=== PATIENT | male | born 1960 | race Hispanic/Latino ===

== ENCOUNTER → 2018-11-08 | Outpatient (CLI) | payer MEDICAID ==
[~2018-11-08] MED LIST: AEC81 PO; AMIO200T5 PO; AMLO10TA7 PO; CARV6.2579 PO; EVOL420W SQ; INSU100I3 SQ; INSU100V12 SQ; LEVO300T4 PO; LIRA0.6P2 SQ; LOSA100T2 PO; OMEG1CAP31 PO; RIVA20TA PO; TYL3 PO
== END | disposition home or self-care (01) ==
LOC: SHCH 10:00
PROVIDERS: ATTEND Internal Medicine Cardiovascular Disease
DX: I11.9 Hypertensive heart disease without heart failure (principal); I08.0 Rheumatic disorders of both mitral and aortic valves
CPT/HCPCS: 93306

== ENCOUNTER → 2020-01-25 | Outpatient (CLI) | payer MEDICAID ==
[~2020-01-25] MED LIST changes: -AMIO200T5 PO; -AMLO10TA7 PO; +CARV12.580 PO; +CARV25TA PO; -CARV6.2579 PO; -EVOL420W SQ; +FOLI0.8T22 PO; +FURO80TA3 PO; +HYDR25 PO; -INSU100V12 SQ; +LEVO150 PO; +LINA5TAB PO; -LOSA100T2 PO; +LOSA50TA64 PO; +PRAV20TA4 PO; +RIVA15TA PO; -RIVA20TA PO; +SODI650T PO; -TYL3 PO
== END | disposition home or self-care (01) ==
LOC: SHCH 07:49
PROVIDERS: ATTEND Internal Medicine Cardiovascular Disease
DX: I25.10 Atherosclerotic heart disease of native coronary artery without angina pectoris (principal); R09.89 Other specified symptoms and signs involving the circulatory and respiratory systems; R60.9 Edema, unspecified
CPT/HCPCS: 93306; 93880; 93970

== ENCOUNTER 2020-07-07 11:33 | Observation (INO) | payer MEDICARE ==
[~2020-07-07] VITALS: Ht 177.8 cm; Wt 122.7 kg
[~2020-07-07 11:33] MED LIST changes: -CARV12.580 PO; +EVOL140S2 SQ; -FURO80TA3 PO; -HYDR25 PO; +INSU3INS3 SQ; -LEVO300T4 PO; -LIRA0.6P2 SQ; -SODI650T PO
[2020-07-07] MEDS ORDERED: METHYLPREDNISOLONE SOD SUCC 125MG/2ML VIAL ONE (11:45)
[2020-07-07] MEDS ORDERED: DiphenhydrAMINE HCL 50 MG/ML VIAL ONE (11:45)
[2020-07-07] MEDS ORDERED: FAMOTIDINE/PF 20 MG/2 ML VIAL IV ONE ×2 (11:45→21:16)
[2020-07-07 11:50] LABS: BASOPHILS % (AUTO) 0.2 % (0.0-5.0); EOSINOPHILS % (AUTO) 2.6 % (0.0-8.0); HEMATOCRIT 39.1 % (42-54); LYMPHOCYTES % (AUTO) 17.7 % (21.0-51.0); MEAN CORPUSCULAR HEMOGLOBIN 30.3 pg (27.0-33.0); MEAN CORPUSCULAR HGB CONC 32.2 g/dL (32.0-36.0); MONOCYTES % (AUTO) 3.2 % (3.0-13.0); NEUTROPHILS % (AUTO) 75.8 % (40.0-77.0); PLATELET COUNT (AUTO) 101 K/uL (130-400); RED BLOOD CELL COUNT(AUTO) 4.16 MIL/uL (4.50-6.20); RED CELL DISTRIBUTION WIDTH 15.4 % (11.0-15.5); WHITE BLOOD COUNT (AUTO) 8.5 K/uL (4.8-10.8)
[2020-07-07 12:00] LABS: ALBUMIN 2.5 g/dL (3.5-5.0); BILIRUBIN,TOTAL 0.9 mg/dL (0.2-1.0); CREATININE 7.1 mg/dL (0.5-1.5); POTASSIUM 4.1 mmol/L (3.5-5.1); TOTAL PROTEIN, SERUM 5.7 g/dL (6.0-8.3)
[2020-07-07] MEDS ORDERED: MORPHINE SULFATE 2 MG/ML 1ML SYG IV PRN (17:15)
[2020-07-07] MEDS ORDERED: ACETAMINOPHEN 325 MG TAB PO PRN ×2 (17:15)
[2020-07-07] MEDS ORDERED: DiphenhydrAMINE HCL 50 MG/ML VIAL IV PRN (17:15)
[2020-07-07] MEDS ORDERED: SODIUM CHLORIDE 0.9% 1000ML 1,000 ML IV SCH (17:15)
[2020-07-07] MEDS ORDERED: ONDANSETRON HCL 4 MG/2 ML VIAL IV PRN (17:15)
[2020-07-07 18:21] LABS: HEMOGLOBIN A1C 9.4 % (4.0-6.0)
[2020-07-07 19:46] LABS: THYROID STIMULATING HORMONE 4.57 uIU/mL (0.36-3.74)
[2020-07-07] MEDS ORDERED: INSULIN GLARGINE 100 UNITS/ML 10 ML VIAL SQ SCH (21:00)
[2020-07-07 22:11] LABS: TROPONIN I 1.25 ng/mL (0.00-0.06)
[2020-07-07] MEDS ORDERED: ASPIRIN 325 MG TABLET ONE (22:49)
[2020-07-07] MEDS ORDERED: CETIRIZINE HCL 5 MG TABLET PO ONE (22:49)
[2020-07-07] MEDS ORDERED: METOPROLOL TARTRATE 25 MG TAB ONE (22:50)
[2020-07-07] MEDS ORDERED: HEPARIN SODIUM 5000UNIT/ML 1ML VIAL ONE (22:50)
[2020-07-07] MEDS ORDERED: INSULIN HUMULIN R 100 UNIT/ML 3ML ONE (23:05)
[2020-07-08 00:04] LABS: AMPHET/METH SCREEN,URINE NEGATIVE (NEGATIVE); BARBITURATE SCREEN, URINE NEGATIVE (NEGATIVE); BENZODIAZEPINES SCREEN,URINE NEGATIVE (NEGATIVE); CANNABINOID SCREEN,URINE NEGATIVE (NEGATIVE); COCAINE SCREEN,URINE NEGATIVE (NEGATIVE); OPIATE SCREEN,URINE NEGATIVE (NEGATIVE); PHENCYCLIDINE SCREEN,URINE NEGATIVE (NEGATIVE)
[2020-07-08] MEDS ORDERED: EPIN0.3P3 IJ (04:03)
[2020-07-08 05:15] LABS: BASOPHILS % (AUTO) 0.2 % (0.0-5.0); HEMATOCRIT 34.2 % (42-54); LYMPHOCYTES % (AUTO) 5.2 % (21.0-51.0); MEAN CORPUSCULAR HEMOGLOBIN 31.3 pg (27.0-33.0); MEAN CORPUSCULAR HGB CONC 33.6 g/dL (32.0-36.0); MEAN CORPUSCULAR VOLUME 93.2 fL (79-99); MONOCYTES % (AUTO) 4.2 % (3.0-13.0); PLATELET COUNT (AUTO) 103 K/uL (130-400); RED BLOOD CELL COUNT(AUTO) 3.67 MIL/uL (4.50-6.20); RED CELL DISTRIBUTION WIDTH 15.2 % (11.0-15.5); WHITE BLOOD COUNT (AUTO) 9.3 K/uL (4.8-10.8)
[2020-07-08 06:55] LABS: ALBUMIN 3.2 g/dL (3.5-5.0); BILIRUBIN,TOTAL 0.8 mg/dL (0.2-1.0); CREATININE 7.6 mg/dL (0.5-1.5); POTASSIUM 5.6 mmol/L (3.5-5.1); TOTAL PROTEIN, SERUM 7.1 g/dL (6.0-8.3)
[2020-07-08] MEDS: SODIUM POLYSTYRENE SULFONATE 15 GM/60 ML ML PO SCH (08:15)
[2020-07-08] MEDS ORDERED: CALCIUM GLUCONATE 1 GM/10 ML VIAL IV SCH (08:15)
[2020-07-08] MEDS ORDERED: CALCIUM GLUCONATE 1 GM in SODIUM CHLORIDE 0.9% 100 ML IV SCH (08:30)
[2020-07-08] MEDS ORDERED: SODIUM POLYSTYRENE SULFONATE 15 GM/60 ML ML ONE ×2 (08:32→08:44)
[2020-07-08] MEDS ORDERED: CALCIUM GLUCONATE 1 GM/10 ML VIAL IV ONE (08:33)
[2020-07-08] MEDS ORDERED: METOPROLOL TARTRATE 25 MG TAB ONE (08:33)
[2020-07-08] MEDS ORDERED: METHYLPREDNISOLONE SOD SUCC 125MG/2ML VIAL ONE (08:33)
[2020-07-08] MEDS ORDERED: CETIRIZINE HCL 5 MG TABLET PO ONE (08:33)
[2020-07-08] MEDS ORDERED: FAMOTIDINE/PF 20 MG/2 ML VIAL IV ONE (08:34)
[2020-07-08] MEDS ORDERED: INSULIN HUMULIN R 100 UNIT/ML 3ML ONE ×3 (08:35→17:27)
[2020-07-08] MEDS ORDERED: SODIUM CHLORIDE 0.9% 50 ML IV ONE (08:36)
[2020-07-08] MEDS: FAMOTIDINE/PF 20 MG/2 ML VIAL IV SCH (09:00)
[2020-07-08] MEDS: CETIRIZINE HCL 5 MG TABLET PO SCH (09:00)
[2020-07-08] MEDS: ASPIRIN 325MG EC TAB 325 MG TABLET.DR PO SCH (09:00)
[2020-07-08] MEDS: METHYLPREDNISOLONE SOD SUCC 125MG/2ML VIAL IVP SCH (09:00)
[2020-07-08] MEDS ORDERED: HEPARIN SODIUM 5000UNIT/ML 1ML VIAL ONE (10:10)
[2020-07-08] MEDS ORDERED: ASPIRIN 325 MG TABLET ONE (10:10)
[2020-07-08] MEDS: INSULIN LISPRO 100 UNIT/ML 3ML SQ SCH (17:00)
[2020-07-08 18:15] VITALS: BP 167/90
[2020-07-08 19:43] VITALS: BP 178/87
[2020-07-08] MEDS: METOPROLOL TARTRATE 25 MG TAB PO SCH (21:12)
[2020-07-08] MEDS: HEPARIN SODIUM 5000UNIT/ML 1ML VIAL SQ SCH (21:14)
[2020-07-08] MEDS: INSULIN HUMULIN R 100 UNIT/ML 3ML SQ SCH (21:15)
[2020-07-08 23:11] VITALS: BP 151/83
[2020-07-09 03:00] VITALS: BP 155/76
[2020-07-09 05:03] LABS: HEMATOCRIT 30.2 % (42-54); MEAN CORPUSCULAR HEMOGLOBIN 30.7 pg (27.0-33.0); MEAN CORPUSCULAR HGB CONC 33.1 g/dL (32.0-36.0); MEAN CORPUSCULAR VOLUME 92.6 fL (79-99); RED BLOOD CELL COUNT(AUTO) 3.26 MIL/uL (4.50-6.20); RED CELL DISTRIBUTION WIDTH 15.1 % (11.0-15.5); WHITE BLOOD COUNT (AUTO) 9.7 K/uL (4.8-10.8)
[2020-07-09 05:31] LABS: MAGNESIUM 2.6 mg/dL (1.80-2.40); PHOSPHORUS 8.5 mg/dL (2.5-4.9); POTASSIUM 4.4 mmol/L (3.5-5.1)
[2020-07-09 05:59] LABS: CREATININE 7.9 mg/dL (0.5-1.5)
[2020-07-09] MEDS: INSULIN HUMULIN R 100 UNIT/ML 3ML SQ SCH ×3 (06:32→13:26)
[2020-07-09 07:15] LABS: HEPATITIS A ANTIBODY IGM Negative (Negative); HEPATITIS B CORE IGM Negative (Negative); HEPATITIS Bs ANTIGEN SCREEN P Negative (Negative)
[2020-07-09 08:24] VITALS: BP 167/83
[2020-07-09] MEDS: CETIRIZINE HCL 5 MG TABLET PO SCH (09:43)
[2020-07-09] MEDS: SODIUM POLYSTYRENE SULFONATE 15 GM/60 ML ML PO SCH (09:43)
[2020-07-09] MEDS: METOPROLOL TARTRATE 25 MG TAB PO SCH (09:44)
[2020-07-09] MEDS: ASPIRIN 325MG EC TAB 325 MG TABLET.DR PO SCH (09:44)
[2020-07-09] MEDS: FAMOTIDINE/PF 20 MG/2 ML VIAL IV SCH (09:47)
[2020-07-09] MEDS: METHYLPREDNISOLONE SOD SUCC 125MG/2ML VIAL IVP SCH (09:47)
[2020-07-09] MEDS: INSULIN LISPRO 100 UNIT/ML 3ML SQ SCH ×2 (10:01→13:24)
[2020-07-09] MEDS: HEPARIN SODIUM 5000UNIT/ML 1ML VIAL SQ SCH (10:03)
[2020-07-09 12:19] VITALS: BP 171/89
== END 2020-07-09 16:00 | disposition home or self-care (01) ==
LOC: EDH 11:33 → INTOOBSV 17:03 → EDHIP 17:03 → 3BH 07-08 17:09
PROVIDERS: ADMIT Family Medicine; ATTEND Family Medicine
DX: T78.2XXA Anaphylactic shock, unspecified, initial encounter (principal); T63.441A Toxic effect of venom of bees, accidental (unintentional), initial encounter; I12.0 Hypertensive chronic kidney disease with stage 5 chronic kidney disease or end stage renal disease; E11.22 Type 2 diabetes mellitus with diabetic chronic kidney disease; N18.6 End stage renal disease; E11.65 Type 2 diabetes mellitus with hyperglycemia; E44.0 Moderate protein-calorie malnutrition; N17.9 Acute kidney failure, unspecified; E78.5 Hyperlipidemia, unspecified; E03.9 Hypothyroidism, unspecified; I25.10 Atherosclerotic heart disease of native coronary artery without angina pectoris; M10.9 Gout, unspecified; E66.9 Obesity, unspecified; I25.5 Ischemic cardiomyopathy; R79.89 Other specified abnormal findings of blood chemistry; D64.9 Anemia, unspecified; E87.5 Hyperkalemia; E11.51 Type 2 diabetes mellitus with diabetic peripheral angiopathy without gangrene; Z95.810 Presence of automatic (implantable) cardiac defibrillator; Z95.1 Presence of aortocoronary bypass graft; Z99.2 Dependence on renal dialysis; Z79.82 Long term (current) use of aspirin; Z79.899 Other long term (current) drug therapy; Z79.4 Long term (current) use of insulin; Z88.8 Allergy status to other drugs, medicaments and biological substances; Z91.030 Bee allergy status; Z68.38 Body mass index [BMI] 38.0-38.9, adult
CPT/HCPCS: 36415 ×3; 80048; 80053 ×2; 80061; 80074; 80305; 82550 ×2; 82948 ×8; 83010; 83036; 83615; 83735; 83874; 84100; 84145; 84443; 84484 ×5; 85025 ×2; 85027; 85651; 87040 ×2; 93005 ×2; 96372 ×2; 96374; 96375; 99284; G0378 ×44; J0610 ×2; J1200; J1644 ×4; J1815 ×6; J2930 ×3; J3490 ×4; 90935

== ENCOUNTER → 2021-08-11 | Outpatient (CLI) | payer OTHER, MEDICARE ==
[~2021-08-11] MED LIST changes: +EPIN0.3P3 IJ; -EVOL140S2 SQ; -OMEG1CAP31 PO
== END | disposition home or self-care (01) ==
LOC: SHCH 14:41
PROVIDERS: ATTEND Internal Medicine Cardiovascular Disease
DX: I35.8 Other nonrheumatic aortic valve disorders (principal); I25.10 Atherosclerotic heart disease of native coronary artery without angina pectoris; I13.10 Hypertensive heart and chronic kidney disease without heart failure, with stage 1 through stage 4 chronic kidney disease, or unspecified chronic kidney disease; E11.22 Type 2 diabetes mellitus with diabetic chronic kidney disease; N18.9 Chronic kidney disease, unspecified; I73.9 Peripheral vascular disease, unspecified; E78.5 Hyperlipidemia, unspecified; E66.9 Obesity, unspecified; Z95.1 Presence of aortocoronary bypass graft
CPT/HCPCS: 93306

== ENCOUNTER → 2021-10-31 | Outpatient (CLI) | payer OTHER, MEDICARE ==
[~2021-10-31] VITALS: Ht 180.3 cm; Wt 127.5 kg
[~2021-10-31] MED LIST changes: +REGADENOSON 0.4 MG/5 ML PF SYG IVP SCH
== END | disposition home or self-care (01) ==
LOC: SHCH 09:20
PROVIDERS: ATTEND Internal Medicine Cardiovascular Disease
DX: I11.9 Hypertensive heart disease without heart failure (principal); R06.02 Shortness of breath; E78.5 Hyperlipidemia, unspecified; E11.9 Type 2 diabetes mellitus without complications; Z95.0 Presence of cardiac pacemaker; Z95.1 Presence of aortocoronary bypass graft
CPT/HCPCS: 78452; 93017; 96374; A9500 ×2; J2785

== ENCOUNTER 2021-12-26 19:51 | Emergency (ER) | payer OTHER, MEDICARE ==
[~2021-12-26] VITALS: Ht 177.8 cm; Wt 117.9 kg
[~2021-12-26 19:51] MED LIST changes: -REGADENOSON 0.4 MG/5 ML PF SYG IVP SCH
[2021-12-26 20:28] LABS: BASOPHILS % (AUTO) 0.3 % (0.0-5.0); EOSINOPHILS % (AUTO) 1.6 % (0.0-8.0); HEMATOCRIT 40.5 % (42-54); LYMPHOCYTES % (AUTO) 9.4 % (21.0-51.0); MEAN CORPUSCULAR HEMOGLOBIN 30.7 pg (27.0-33.0); MEAN CORPUSCULAR HGB CONC 31.1 g/dL (32.0-36.0); MEAN CORPUSCULAR VOLUME 98.8 fL (79-99); MONOCYTES % (AUTO) 5.5 % (3.0-13.0); NEUTROPHILS % (AUTO) 82.8 % (40.0-77.0); PLATELET COUNT (AUTO) 111 K/uL (130-400); RED CELL DISTRIBUTION WIDTH 16.3 % (11.0-15.5); WHITE BLOOD COUNT (AUTO) 7.3 K/uL (4.8-10.8)
[2021-12-26] MEDS: DiphenhydrAMINE HCL 50 MG/ML VIAL IV ONE (20:30)
[2021-12-26] MEDS: EPINEPHRINE PF 1MG (1:1,000) 1 MG/ML AMP SQ ONE (20:30)
[2021-12-26] MEDS: SOLU-MEDROL 125MG VIAL IVP ONE (20:30)
[2021-12-26] MEDS: FAMOTIDINE 20MG VIAL IV ONE (20:30)
[2021-12-26 20:46] LABS: CREATININE 5.3 mg/dL (0.5-1.5); POTASSIUM 4.1 mmol/L (3.5-5.1)
[2021-12-26 20:50] LABS: ALBUMIN 3.6 g/dL (3.5-5.0); TOTAL PROTEIN, SERUM 7.1 g/dL (6.0-8.3)
[2021-12-26] MEDS ORDERED: EPIN0.3P19 IJ (21:47)
[2021-12-26 21:53] VITALS: BP 159/73
== END 2021-12-26 22:07 | disposition home or self-care (01) ==
LOC: EDH 19:51
DX: T63.441A Toxic effect of venom of bees, accidental (unintentional), initial encounter (principal); I12.0 Hypertensive chronic kidney disease with stage 5 chronic kidney disease or end stage renal disease; E11.22 Type 2 diabetes mellitus with diabetic chronic kidney disease; N18.6 End stage renal disease; E78.00 Pure hypercholesterolemia, unspecified; Z91.030 Bee allergy status; Z79.52 Long term (current) use of systemic steroids; Z79.82 Long term (current) use of aspirin; Z79.84 Long term (current) use of oral hypoglycemic drugs; Z79.899 Other long term (current) drug therapy; Z95.1 Presence of aortocoronary bypass graft; Z95.810 Presence of automatic (implantable) cardiac defibrillator; Y92.89 Other specified places as the place of occurrence of the external cause
CPT/HCPCS: 99283; 96374; 96375; 80053; 85025; 36415; 96372; J1200; J3490; J2930; J0171

== ENCOUNTER 2022-10-30 20:12 | Emergency (ER) | payer OTHER, MEDICARE ==
[~2022-10-30] VITALS: Ht 175.3 cm; Wt 123.8 kg
[~2022-10-30 20:12] MED LIST changes: +EPIN0.3P19 IJ
[2022-10-30 20:46] LABS: MEAN CORPUSCULAR HEMOGLOBIN 34.2 pg (27.0-33.0); MEAN CORPUSCULAR HGB CONC 32.2 g/dL (32.0-36.0); MEAN CORPUSCULAR VOLUME 106.1 fL (79-99); PLATELET COUNT (AUTO) 100 K/uL (130-400); RED BLOOD CELL COUNT(AUTO) 1.96 MIL/uL (4.50-6.20); RED CELL DISTRIBUTION WIDTH 16.9 % (11.0-15.5); WHITE BLOOD COUNT (AUTO) 5.3 K/uL (4.8-10.8)
[2022-10-30 20:54] LABS: CREATININE 6.9 mg/dL (0.5-1.5); POTASSIUM 3.6 mmol/L (3.5-5.1)
[2022-10-30 20:57] LABS: INR 1.08 (0.85-1.15); PROTHROMBIN TIME 11.7 SEC (9.6-11.6)
[2022-10-30 20:58] LABS: PARTIAL THROMBOPLASTIN TIME 25.6 SEC (26.3-35.5)
[2022-10-30 21:04] LABS: ALBUMIN 3.3 g/dL (3.5-5.0); TOTAL PROTEIN, SERUM 6.5 g/dL (6.0-8.3)
[2022-10-30 21:15] LABS: HEMATOCRIT 20.8 % (42-54)
[2022-10-31 00:30] VITALS: BP 134/65
== END 2022-10-31 01:10 | disposition left against medical advice (07) ==
LOC: EDH 20:12
DX: I21.4 Non-ST elevation (NSTEMI) myocardial infarction (principal); I12.0 Hypertensive chronic kidney disease with stage 5 chronic kidney disease or end stage renal disease; E11.22 Type 2 diabetes mellitus with diabetic chronic kidney disease; N18.6 End stage renal disease; D63.1 Anemia in chronic kidney disease; E78.00 Pure hypercholesterolemia, unspecified; Z99.2 Dependence on renal dialysis; Z79.01 Long term (current) use of anticoagulants; Z79.84 Long term (current) use of oral hypoglycemic drugs; Z79.82 Long term (current) use of aspirin; Z79.899 Other long term (current) drug therapy; Z91.030 Bee allergy status; Z95.1 Presence of aortocoronary bypass graft; Z95.810 Presence of automatic (implantable) cardiac defibrillator
CPT/HCPCS: 99291; 36430; 84484; 80053; 85027; 85610; 85730; 86850; 86900; 86901; 86923; 36415; 93005; P9016

== ENCOUNTER 2022-12-16 10:07 | Emergency (ER) | payer OTHER, MEDICARE ==
[~2022-12-16] VITALS: Ht 170.2 cm; Wt 124.3 kg
[~2022-12-16 10:07] MED LIST changes: -EPIN0.3P19 IJ; -EPIN0.3P3 IJ; -INSU100I3 SQ; +INSU300I SQ; -INSU3INS3 SQ; +LEVO25TA9 PO; -LINA5TAB PO; +NOVOLOG FLEXPEN; +PANT40TA PO; +REPATHA INJECTION; +SEVE0.8P3 PO; +SEVE800 PO; +SUCR500T PO; +VICTOZA INJECTION
[2022-12-16 10:09] VITALS: BP 141/67; PULSE 4; RESP 18
[2022-12-16 11:53] LABS: BASOPHILS # (AUTO) 0.07 K/uL (0.00-0.20); BASOPHILS % (AUTO) 1.2 % (0.0-5.0); EOSINOPHILS # (AUTO) 0.28 K/uL (0.00-0.70); EOSINOPHILS % (AUTO) 4.8 % (0.0-8.0); HEMATOCRIT 23.9 % (42-54); IMMATURE GRANULOCYTE ABSOLUTE 0.01 K/uL (0-1); LYMPHOCYTES # (AUTO) 0.8 K/uL (1.0-4.8); MEAN CORPUSCULAR HEMOGLOBIN 31.8 pg (27.0-33.0); MEAN CORPUSCULAR HGB CONC 31.8 g/dL (32.0-36.0); MONOCYTES # (AUTO) 0.5 K/uL (0.1-1.0); MONOCYTES % (AUTO) 8.6 % (3.0-13.0); NEUTROPHILS # (AUTO) 4.2 K/uL (1.8-7.7); NEUTROPHILS % (AUTO) 72.2 % (40.0-77.0); PLATELET COUNT (AUTO) 152 K/uL (130-400); RED BLOOD CELL COUNT(AUTO) 2.39 MIL/uL (4.50-6.20); RED CELL DISTRIBUTION WIDTH 16.8 % (11.0-15.5); WHITE BLOOD COUNT (AUTO) 5.8 K/uL (4.8-10.8)
[2022-12-16 12:04] LABS: CREATININE 6.1 mg/dL (0.5-1.5); POTASSIUM 4.1 mmol/L (3.5-5.1)
[2022-12-16 12:08] LABS: ALBUMIN 3.2 g/dL (3.5-5.0); BILIRUBIN,TOTAL 1.5 mg/dL (0.2-1.0); TOTAL PROTEIN, SERUM 6.4 g/dL (6.0-8.3)
== END 2022-12-16 14:06 | disposition home or self-care (01) ==
LOC: EDH 10:07
DX: D64.9 Anemia, unspecified (principal); I12.0 Hypertensive chronic kidney disease with stage 5 chronic kidney disease or end stage renal disease; E11.22 Type 2 diabetes mellitus with diabetic chronic kidney disease; N18.6 End stage renal disease; Z99.2 Dependence on renal dialysis; E78.00 Pure hypercholesterolemia, unspecified; Z79.4 Long term (current) use of insulin; Z79.82 Long term (current) use of aspirin; Z79.85 Long-term (current) use of injectable non-insulin antidiabetic drugs; Z79.890 Hormone replacement therapy; Z79.899 Other long term (current) drug therapy; Z90.49 Acquired absence of other specified parts of digestive tract; Z91.030 Bee allergy status; Z95.810 Presence of automatic (implantable) cardiac defibrillator
CPT/HCPCS: 36415; 71045; 80053; 84484; 85025; 86850; 86900; 86901; 93005

== ENCOUNTER 2023-05-21 07:12 | Day surgery (SDC) | payer MEDICARE, OTHER ==
[2023-05-19 12:18] LABS: BASOPHILS # (AUTO) 0.05 K/uL (0.00-0.20); EOSINOPHILS # (AUTO) 0.31 K/uL (0.00-0.70); IMMATURE GRANULOCYTE ABSOLUTE 0.02 K/uL (0-1); LYMPHOCYTES # (AUTO) 0.7 K/uL (1.0-4.8); LYMPHOCYTES % (AUTO) 13.9 % (21.0-51.0); MEAN CORPUSCULAR HEMOGLOBIN 33.7 pg (27.0-33.0); MEAN CORPUSCULAR HGB CONC 32.7 g/dL (32.0-36.0); MEAN CORPUSCULAR VOLUME 103.1 fL (79-99); MONOCYTES # (AUTO) 0.5 K/uL (0.1-1.0); NEUTROPHILS # (AUTO) 3.6 K/uL (1.8-7.7); NEUTROPHILS % (AUTO) 68.7 % (40.0-77.0); PLATELET COUNT (AUTO) 73 K/uL (130-400); RED BLOOD CELL COUNT(AUTO) 3.59 MIL/uL (4.50-6.20); RED CELL DISTRIBUTION WIDTH 16.5 % (11.0-15.5); WHITE BLOOD COUNT (AUTO) 5.2 K/uL (4.8-10.8)
[2023-05-19 12:27] LABS: INR 1.04 (0.85-1.15)
[2023-05-19 12:28] LABS: PARTIAL THROMBOPLASTIN TIME 26.9 SEC (26.3-35.5)
[2023-05-19 12:30] LABS: POTASSIUM 4.6 mmol/L (3.5-5.1)
[2023-05-19 12:43] VITALS: BP 137/62; PULSE 60; RESP 18
[2023-05-19 12:58] LABS: B-TYPE NATRIURETIC PEPTIDE 2100 pg/mL (0-100)
[2023-05-21] VITALS (11 sets, daily range): BP systolic 126–147; BP diastolic 67–84; PULSE 54–66; RESP 13–18
[~2023-05-21] VITALS: Ht 177.8 cm; Wt 127.6 kg
[~2023-05-21 07:12] MED LIST changes: +EVOL140S2 SQ; +INSU100I3 SQ; +LIRA0.6P SQ; -NOVOLOG FLEXPEN; -PANT40TA PO; -REPATHA INJECTION; -RIVA15TA PO; -SEVE0.8P3 PO; -VICTOZA INJECTION
[2023-05-21] MEDS ORDERED: 0.9%NACL 1000ML 1,000 ML IV ONE (07:45)
[2023-05-21] MEDS ORDERED: LIDOCAINE HCL 400MG/20ML VIAL ONE (09:39)
[2023-05-21] MEDS ORDERED: SODIUM BICARB 50MEQ 50ML VIAL 50 ML ONE (09:39)
[2023-05-21] MEDS ORDERED: NITROGLYCERIN 50MG VIAL ONE (09:40)
[2023-05-21] MEDS ORDERED: MEPERIDINE-PF 25 MG/ML SYG ONE ×3 (09:40→11:01)
[2023-05-21] MEDS ORDERED: IOHEXOL 350 MG/ML 100ML INFUS..BTL IV ONE (09:40)
[2023-05-21] MEDS ORDERED: MIDAZOLAM HCL 1 MG/ML 2ML VIAL ONE ×3 (09:40→11:01)
[2023-05-21] MEDS ORDERED: HEPARIN 10,000 UNIT/10ML (1,000 UNIT/ML) VIAL ONE (09:40)
[2023-05-21] MEDS ORDERED: IOHEXOL-350 50ML VIAL IV ONE (10:12)
[2023-05-21] MEDS ORDERED: IOHEXOL-350 75 ML VIAL IV ONE (11:13)
[2023-05-21] MEDS ORDERED: CLOPIDOGREL 300MG TAB ONE (11:43)
[2023-05-21] MEDS ORDERED: ASPIRIN 325MG EC TAB PO ONE (11:43)
[2023-05-21] MEDS ORDERED: DEXTROSE 50%-WATER 50 ML DISP.SYRIN IV PRN (12:00)
[2023-05-21] MEDS ORDERED: GLUCAGON 1MG KIT 1 MG ML IM PRN (12:00)
[2023-05-21] MEDS ORDERED: INSULIN HUMULIN R 100 UNIT/ML 3ML SQ SCH (16:30)
== END 2023-05-21 18:15 | disposition home or self-care (01) ==
LOC: DAH 07:12
PROVIDERS: ATTEND Internal Medicine Cardiovascular Disease
DX: I25.119 Atherosclerotic heart disease of native coronary artery with unspecified angina pectoris (principal); I25.729 Atherosclerosis of autologous artery coronary artery bypass graft(s) with unspecified angina pectoris; I25.82 Chronic total occlusion of coronary artery; I25.5 Ischemic cardiomyopathy; I44.7 Left bundle-branch block, unspecified; E11.22 Type 2 diabetes mellitus with diabetic chronic kidney disease; I13.2 Hypertensive heart and chronic kidney disease with heart failure and with stage 5 chronic kidney disease, or end stage renal disease; N18.6 End stage renal disease; I50.42 Chronic combined systolic (congestive) and diastolic (congestive) heart failure; E11.51 Type 2 diabetes mellitus with diabetic peripheral angiopathy without gangrene; E78.5 Hyperlipidemia, unspecified; E03.9 Hypothyroidism, unspecified; K21.9 Gastro-esophageal reflux disease without esophagitis; Z79.82 Long term (current) use of aspirin; Z79.01 Long term (current) use of anticoagulants; Z79.899 Other long term (current) drug therapy; Z79.890 Hormone replacement therapy; Z83.3 Family history of diabetes mellitus; Z82.3 Family history of stroke; Z99.2 Dependence on renal dialysis; Z95.1 Presence of aortocoronary bypass graft
CPT/HCPCS: 80048; 83880; 85025; 85610; 85730; 36415; 71045; 93005 ×2; 85347 ×2; 82948 ×2; 93459; C9600 ×2; C1887 ×3; C1769 ×3; C1894 ×2; C1874 ×4; C1760; C1725; J3490 ×3; J7030; J1644 ×2; J2250 ×3; J2175 ×3; Q9967 ×3; A4215; A4222; A4221; A4663; A4216; A4606; C9601 ×2; Q9965 ×2; A4223 ×3; 99156; 99157

== ENCOUNTER → 2023-06-14 | Outpatient (CLI) | payer OTHER ==
[2023-06-14 16:32] LABS: BASOPHILS # (AUTO) 0.07 K/uL (0.00-0.20); BASOPHILS % (AUTO) 1.2 % (0.0-5.0); EOSINOPHILS # (AUTO) 0.36 K/uL (0.00-0.70); EOSINOPHILS % (AUTO) 6.3 % (0.0-8.0); HEMATOCRIT 26.5 % (42-54); IMMATURE GRANULOCYTE ABSOLUTE 0.02 K/uL (0-1); LYMPHOCYTES # (AUTO) 0.8 K/uL (1.0-4.8); LYMPHOCYTES % (AUTO) 13.9 % (21.0-51.0); MEAN CORPUSCULAR HEMOGLOBIN 33.9 pg (27.0-33.0); MEAN CORPUSCULAR HGB CONC 30.6 g/dL (32.0-36.0); MEAN CORPUSCULAR VOLUME 110.9 fL (79-99); MONOCYTES # (AUTO) 0.5 K/uL (0.1-1.0); MONOCYTES % (AUTO) 8.7 % (3.0-13.0); NEUTROPHILS % (AUTO) 69.6 % (40.0-77.0); NUCLEATED RED BLOOD CELLS 0.3 % (0.0-0.19); PLATELET COUNT (AUTO) 93 K/uL (130-400); RED BLOOD CELL COUNT(AUTO) 2.39 MIL/uL (4.50-6.20); RED CELL DISTRIBUTION WIDTH 17.7 % (11.0-15.5); WHITE BLOOD COUNT (AUTO) 5.7 K/uL (4.8-10.8)
[2023-06-14 16:56] LABS: ALBUMIN 2.9 g/dL (3.5-5.0); BILIRUBIN,TOTAL 1.5 mg/dL (0.2-1.0); POTASSIUM 4.9 mmol/L (3.5-5.1); TOTAL PROTEIN, SERUM 6.4 g/dL (6.0-8.3)
== END | disposition home or self-care (01) ==
LOC: LAB 12:42
PROVIDERS: ATTEND Physician Assistant
DX: I10 Essential (primary) hypertension (principal); E78.5 Hyperlipidemia, unspecified
CPT/HCPCS: 36415; 80053; 83880; 85025

== ENCOUNTER → 2023-12-29 | Outpatient (CLI) | payer OTHER ==
[~2023-12-29] MED LIST changes: +ALBUMIN (HUMAN) 25% 200 ML IV ONE
[2023-12-29 08:53] LABS: INR 1.1 (0.85-1.15); PROTHROMBIN TIME 11.8 SEC (9.6-11.6)
[2023-12-29 08:54] LABS: PARTIAL THROMBOPLASTIN TIME 27.2 SEC (26.3-35.5)
[2023-12-29 15:42] LABS: SPECIMENTYPE,BODY FLUID ASCITES
[2023-12-29 15:43] LABS: APPEARANCE BODY FLUID CLEAR (CLEAR); COLOR,BODY FLUID YELLOW (LT YELLOW); TOTAL VOLUME,BODY FLUID 750 mL
[2023-12-29 15:49] LABS: BODY FLUID RBC 68 /cu. mm.; BODY FLUID WBC 328 /cu. mm.
[2023-12-29 17:35] LABS: BF LYMPHOCYTE 30 %; BF MACROPHAGE 57; BF OTHER CELLS 1; BF TOTAL CELLS COUNTED 100
== END | disposition home or self-care (01) ==
LOC: RAH 07:46
PROVIDERS: ATTEND Internal Medicine
DX: K70.31 Alcoholic cirrhosis of liver with ascites (principal); I12.0 Hypertensive chronic kidney disease with stage 5 chronic kidney disease or end stage renal disease; E11.22 Type 2 diabetes mellitus with diabetic chronic kidney disease; N18.6 End stage renal disease; E78.5 Hyperlipidemia, unspecified; E03.9 Hypothyroidism, unspecified; M10.9 Gout, unspecified; Z95.0 Presence of cardiac pacemaker; Z79.82 Long term (current) use of aspirin; Z79.899 Other long term (current) drug therapy
CPT/HCPCS: 49083; 89051; 85610; 85730; 87071; 87205; 36415; P9046; C1729; 96365

== ENCOUNTER 2024-05-20 14:34 | Emergency (ER) | payer OTHER, MEDICARE ==
[~2024-05-20] VITALS: Ht 175.3 cm; Wt 122.5 kg
[~2024-05-20 14:34] MED LIST changes: -ALBUMIN (HUMAN) 25% 200 ML IV ONE
--- NOTE | 2024-05-20 14:41 | ERN ---
ED Note History of Present Illness Stated Complaint: FLU LIKE SYMPTOMS Chief Complaint: Flu Symptoms Time Seen by MD: 14:35 Dictation: PATIENT IS A 64-YEAR-OLD MALE BEING SEEN HERE WITH HIS WITH THE SAME COMPLAINTS OF HAVING FLU-LIKE SYMPTOMS TO INCLUDE CLEAR RHINITIS, MILD SORE THROAT DRY COUGH AND BODY ACHES FOR TWO DAYS. NO NAUSEA VOMITING NO DIARRHEA THEY DID NOT GO SEE THEIR PRIMARY CARE DOCTOR. AND IF TAKEN NOTHING PRIOR TO ARRIVAL FOR PAIN. Allergies: Coded Allergies: pioglitazone (Unverified Allergy, Unknown, 09/11/16) Uncoded Allergies: Bees (Adverse Reaction, Severe, 07/07/20) Home Meds Active Scripts Benzonatate (Tessalon Perles) 100 Mg Cap, 1 CAP PO TID for cough for 10 Days, #30 CAP 0 Refills Prov:JONATHAN ROBLEDO SEXUAL ABUSE COUNSELLOR 05/20/24 Albuterol Sulfate (Ventolin Hfa/Proventil Hfa/Proair Hfa) 90 Mcg Puff, 2 PUFF IH Q4H for WHEEZING, #1 INHALER 0 Refills Prov:JONATHAN ROBLEDO SEXUAL ABUSE COUNSELLOR 05/20/24 Reported Medications Liraglutide (Victoza 2-Oscar) 0.6 Mg/0.1 Ml (18 Mg/3 Ml) Pen.injctr, SQ DAILY 05/20/23 Insulin Aspart (Novolog Flexpen) 100 Unit/Ml (3 Ml) Insuln.pen, SQ TIDMEALS, SYRINGE 05/20/23 Evolocumab (Repatha Syringe) 140 Mg/Ml Syringe, 140 MG SQ [id number], SYRINGE 05/20/23 Sevelamer HCl (Renagel) 800 Mg Tablet, 4000 MG PO TIDMEALS 11/19/22 Sucroferric Oxyhydroxide (Velphoro) 500 Mg Tab.chew, 500 MG PO TIDMEALS, TAB.CHEW 11/19/22 Folic Acid/Vitamin B Comp W-C (Erica-Juan Tablet) 0.8 Mg Tablet, 0.8 MG PO DAILY, TAB 11/19/22 Losartan Potassium (Losartan Potassium) 50 Mg Tablet, 50 MG PO DAILY, TAB 11/19/22 Levothyroxine Sodium (Synthroid 25 Mcg Tab) 25 Mcg Tablet, 25 MCG PO QWEEK, TAB TAKE ON Wednesday11/19/22 Aspirin (ASPIRIN 81 MG ECTAB) 81 Mg Ectab, 81 MG PO DAILY, TAB.EC 11/19/22 Carvedilol (Carvedilol) 25 Mg Tablet, 25 MG PO BID, TAB 11/19/22 Levothyroxine Sodium (Synthroid 150 Mcg Tab) 150 Mcg Tab, 300 MCG PO DAILY, TAB 11/19/22 Pravastatin Sodium (Pravastatin Sodium) 20 Mg Tablet, 20 MG PO DAILY, TAB 11/19/22 Insulin Glargine,Hum.rec.anlog (Toubriseidao Solostar) 300 Unit/1 Ml Insuln.pen, 6-8 UNIT SQ DAILY, SYRINGE 11/19/22 Past Medical History Past Medical History: Diabetes-Type II, High Cholesterol, Heart Disease, Hypertension, Renal Disese, Renal Failure Surgical History: Cholecystectomy, Pacer/AICD, LAVA Social History: Negative, Lives with family RN Note Reviewed/Agreed w/PFSH: Yes Review of System Dictation CONSTITUTIONAL: NEGATIVE EXCEPT FOR HPI FEVER CHILLS HEAD/FACE: NEGATIVE EXCEPT FOR HPI EENT: NEGATIVE EXCEPT FOR HPI CLEAR RHINITIS WITH MILD RESPIRATORY: NEGATIVE EXCEPT FOR HPI SO NONPRODUCTIVE COUGH GASTROINTESTINAL/ABDOMINAL: NEGATIVE EXCEPT FOR HPI GENITOURINARY: NEGATIVE EXCEPT FOR HPI MUSCULOSKELETAL: NEGATIVE EXCEPT FOR HPI INTEGUMENTARY: NEGATIVE EXCEPT FOR HPI NEUROLOGICAL/PSYCH: NEGATIVE EXCEPT FOR HPI HEMATOLOGIC/LYMPHATIC: NEGATIVE EXCEPT FOR HPI ALL SYSTEMS NEGATIVE, EXCEPT NOTED ABOVE. 13 POINT REVIEW OF SYSTEMS ASSESSED AND ALL NEGATIVE EXCEPT FOR ABOVE. Initial Vital Sign VS Vital Signs Date Time Temp Pulse Resp B/P (MAP) Pulse Ox O2 Delivery O2 Flow Rate FiO2 05/20/24 14:44 100.2 60 20 131/49 94 Room Air 0 05/20/24 14:46 21 Physical Exam Dictation VITAL SIGNS REVIEWED GENERAL APPEARANCE: ALERT, ORIENTED X 3, MILD ACUTE DISTRESS, WELL DEVELOPED, NOURISHED. OBESE HEAD AND FACE: NON-TRAUMATIC. EYES: PERRL, PINK CONJUNCTIVAS, EYELID NO TRAUMA, ANTERIOR CHAMBER WITH ARCUS SENILIS. EARS: PINNAS INTACT AND NO SIGNS OF TRAUMA OR ERYTHEMA EAR CANALS CLEAR AND NO DISCHARGE TM NO ERYTHEMA NOSE: CLEAR DISCHARGE, NO BLEEDING. OROPHARYNX: MOUTH NORMAL, TONGUE PINK, PHARYNX CLEAR, MILD PHARYNGEAL ERYTHEMA, TONSILS NO EXUDATES, NO ABSCESSES NOTED, MUCOUS MEMBRANE MOIST NECK: SUPPLE, NON-TENDER, NO THYROMEGALY, NO MASSES, NO JVD, NO BRUITS BREAST:DEFERRED CHEST:NO TENDERNESS, NO CREPITUS, NO PARADOXICAL MOVEMENT, NO RETRACTIONS LUNGS:CLEAR, WELL-VENTILATED, SYMMETRIC, NO RALES, NO WHEEZING, NO RHONCHI, NO STRIDOR, GOOD BREATH SOUNDS BILATERALLY HEART: REGULAR RATE, REGULAR RHYTHM, NO MURMUR, NO GALLOPS VASCULAR: NO PERIPHERAL EDEMA, ABDOMEN: SOFT, POSITIVE BOWEL SOUNDS, NONDISTENDED, NO GUARDING, NONTENDER, NO REBOUND, NO MASSES NO HEPATOMEGALY, NO SPLENOMEGALY, NO PEGUERO'S SIGN, NO HERNIAS. RECTAL: DEFERRED GENITAL: DEFERRED NEUROLOGICAL: NORMAL SPEECH, MOTOR FUNCTION INTACT, SENSORY FUNCTION INTACT MUSCULOSKELETAL: NECK NONTENDER, FULL RANGE OF MOTION, BACK NONTENDER, FULL RANGE OF MOTION, EXTREMITIES: NONTENDER, FULL RANGE OF MOTION SKIN: COLOR PINK, DRY, NO TURGOR, NO RASH, NO LACERATIONS, NO ABRASIONS, NO CONTUSIONS. LYMPHATIC: DEFERRED Results (Laboratory/Radiology) Laboratory/Radiology Laboratory Tests Test 05/20/24 14:56 Influenza Type A Antigen Negative For Type A Influenza Type B Antigen Negative For Type B SARS-CoV-2 Antigen (Rapid) PRESUMPTIVE NEGATIVE Group A Streptococcus Rapid negative (NEGATIVE) Labs Reviewed?: Yes ED Course ED Course Orders Procedure Category Date Status Time Covid19 (Sars Antigen LAB 05/20/24 Complete Rapid) 14:39 Influenza Type A & B, LAB 05/20/24 Complete Rapid 14:39 Rapid (Group A Strep) LAB 05/20/24 Complete 14:39 Acetaminophen 500mg PHA 05/20/24 Complete Tab (Tylenol 500mg T 15:00 Current Medications Medications (Trade) Dose Ordered Sig/Peter Route PRN Reason Start Time Stop Time Status Last Admin Dose Admin Acetaminophen (TYLenol 500MG TAB) 1,000 mg ONCE ONCE PO 05/20/24 15:00 05/20/24 15:01 DC 05/20/24 15:00 Vital Signs Date Time Temp Pulse Resp B/P (MAP) Pulse Ox O2 Delivery O2 Flow Rate FiO2 05/20/24 15:44 99.0 64 18 127/60 97 Room Air* 0 21 05/20/24 15:00 100.2 05/20/24 14:46 100.2 65 20 131/69 97 Room Air* 0 21 05/20/24 14:44 100.2 60 20 131/49 94 Room Air 0 FIFTEEN 50, SWABS FOR FLU COVID AND STREP NORMAL, PATIENT WILL BE DISCHARGED HOME WITH VIRAL URI WITH CALL PRESCRIBED ALBUTEROL AND TESSALON TOLD TO SEE HIS DOCTOR WEDNESDAY. Medical Decision Making MDM MEDICAL DISCHARGE MAKING BASED ON SWABS FOR FLU COVID AND STREP. ALL SWABS NEGATIVE PATIENT IS SATURATING 97% ON ROOM AIR DISCHARGED HOME WITH ALBUTEROL AND TESSALON TOLD TO SEE HIS DOCTOR WEDNESDAY DX & DISP Disposition: Discharge Departure Impression: Primary Impression: Viral URI with cough Condition: Stable Scripts Benzonatate (Tessalon Perles) 100 Mg Cap 1 CAP PO TID for cough for 10 Days, #30 CAP 0 Refills Prov: JONATHAN ROBLEDO SEXUAL ABUSE COUNSELLOR 05/20/24 Albuterol Sulfate (Ventolin Hfa/Proventil Hfa/Proair Hfa) 90 Mcg Puff 2 PUFF IH Q4H for WHEEZING, #1 INHALER 0 Refills Prov: JONATHAN ROBLEDO SEXUAL ABUSE COUNSELLOR 05/20/24 Additional Instructions: FOLLOW-UP WITH PRIMARY CARE PROVIDER IN 1 TO 2 DAYS. TAKE MEDICATIONS DIREC ERIC HERE IN THE EMERGENCY ROOM. OKAY TO CONTINUE HOME MEDICATIONS UNLESS OTHERWISE DISCUSSED DURING YOUR VISIT IN THE EMERGENCY ROOM TODAY. RETURN TO YOUR NEAREST EMERGENCY ROOM IF SYMPTOMS WORSEN OR IF THERE IS NO IMPROVEMENT. CALL 911 IF YOU NEED IMMEDIATE ASSISTANCE. TAKE TYLENOL OR MOTRIN [id number] NEEDED AND IF NO CONTRAINDICATIONS ARE PRESENT. INCREASE ORAL HYDRATION. A WOUND CULTURE OR URINE CULTURE WAS ORDERED HERE IN THE EMERGENCY ROOM DEPARTMENT PLEASE FOLLOW-UP WITH PRIMARY CARE PROVIDER AND ADVISE THEM TO GET REPEAT PORTS FROM OUR FACILITY. IF YOU HAD ANY SADIA WRAP/SPLINTS THAT WERE APPLIED HERE, PLEASE DO NOT REMOVE THEM UNTIL YOU SEE YOUR PRIMARY CARE OR SPECIALTY. USE ALBUTEROL INHALER EVERY4 HOURS WHILE AWAKE FOR THE NEXT THREE DAYS., TAKE TESSALON DIRECTED FOR YOUR COUGH. , SEE YOUR DOCTOR ON WEDNESDAY WITHOUT FAIL FOR FOLLOW UP AND MANAGEMENT. Referrals: EILEEN PUENTE MD (PCP) Time of Disposition: 15:52 I have reviewed the case, and I agree with, Diagnosis and Plan I performed a substantive portion of the visit. I have reviewed and personally made and approve the management plan that is documented in the notes by myself with RAMÍREZ/resident. I acknowledged full responsibility for the patient's management plan. JONATHAN ROBLEDO AALIYAH May 20, 2024 14:41 SHERLYN PEREIRA DO May 20, 2024 18:44
[2024-05-20] MEDS: acetaMINOPHEN 500 MG TABLET PO ONE (15:00)
[2024-05-20 15:16] LABS: RAPID GROUP A STREP negative (NEGATIVE)
[2024-05-20 15:33] LABS: COVID19 (SARS ANTIGEN RAPID) PRESUMPTIVE NEGATIVE (NEGATIVE); INFLUENZA TYPE A Negative For Type A (NEGATIVE); INFLUENZA TYPE B Negative For Type B (NEGATIVE)
[2024-05-20 15:43] VITALS: TEMP 99
[2024-05-20 15:44] VITALS: BP 127/60; PULSE 64; RESP 18; TEMP 99; O2SAT 97
[2024-05-20] MEDS ORDERED: ALBUHFA IH (15:53)
[2024-05-20] MEDS ORDERED: BENZ-39 PO (15:53)
[2024-05-21] MEDS ORDERED: CLOP-31 PO (11:13)
[2024-05-21] MEDS ORDERED: LIRA0.6P2 SQ (11:13)
[2024-05-21] MEDS ORDERED: LEVO25TA9 PO (11:13)
[2024-05-21] MEDS ORDERED: INSU100I3 SQ (11:13)
[2024-05-21] MEDS ORDERED: LEVO150 PO (11:13)
[2024-05-21] MEDS ORDERED: SEVE0.8P3 PO (11:13)
[2024-05-21] MEDS ORDERED: SEVE0.8P PO (16:03)
== END 2024-05-20 16:01 | disposition home or self-care (01) ==
LOC: EDH 14:34
DX: J06.9 Acute upper respiratory infection, unspecified (principal); B97.89 Other viral agents as the cause of diseases classified elsewhere; E11.9 Type 2 diabetes mellitus without complications; E78.00 Pure hypercholesterolemia, unspecified; I11.9 Hypertensive heart disease without heart failure; Z20.822 Contact with and (suspected) exposure to COVID-19; Z79.4 Long term (current) use of insulin; Z79.82 Long term (current) use of aspirin; Z79.85 Long-term (current) use of injectable non-insulin antidiabetic drugs; Z79.890 Hormone replacement therapy; Z79.899 Other long term (current) drug therapy; Z90.49 Acquired absence of other specified parts of digestive tract; Z91.030 Bee allergy status; Z95.810 Presence of automatic (implantable) cardiac defibrillator
CPT/HCPCS: 87426; 87804; 87880; 99282

== ENCOUNTER → 2024-08-18 | Outpatient (CLI) | payer OTHER, MEDICARE ==
[~2024-08-18] MED LIST changes: -AEC81 PO; +CLOP-31 PO; -INSU300I SQ; -LIRA0.6P SQ; +LIRA0.6P2 SQ; -LOSA50TA64 PO; -PRAV20TA4 PO; +SEVE0.8P PO; -SEVE800 PO; -SUCR500T PO
[2024-08-18 15:32] LABS: CREATININE 5.4 mg/dL (0.5-1.3); MAGNESIUM 2.4 mg/dL (1.80-2.40); POTASSIUM 4.9 mmol/L (3.5-5.1)
== END | disposition home or self-care (01) ==
LOC: LAB 11:41
PROVIDERS: ATTEND Nurse Practitioner Acute Care
DX: I10 Essential (primary) hypertension (principal); E78.5 Hyperlipidemia, unspecified
CPT/HCPCS: 36415; 80048; 83735; 83880